=== PATIENT | female | born 1945 | race Caucasian/White ===

== ENCOUNTER 2018-07-06 06:57 | Inpatient (IN) | payer OTHER ==
[~2018-07-06] VITALS: Ht 154.9 cm; Wt 80.8 kg
--- NOTE | 2018-07-06 07:30 | ED GENERAL ADULT ---
History of Present Illness General Chief Complaint: General Adult Stated Complaint: BIBA LOW BLOOD SUGAR Source: patient, family Exam Limitations: clinical condition Vital Signs & Intake/Output Vital Signs & Intake/Output Vital Signs Date Time Temp Pulse Resp B/P B/P Pulse O2 O2 Flow FiO2 Mean Ox Delivery Rate 07/06 1600 97.6 71 19 122/68 97 Room Air 07/06 1600 97 Room Air 07/06 1400 87 110/36 07/06 1400 87 110/56 07/06 1300 97.9 88 20 130/60 99 Room Air 07/06 1109 96.1 96 18 122/58 99 Room Air 07/06 0944 93.9 81 20 106/52 99 Room Air 07/06 0845 92.5 71 18 116/58 100 Room Air 07/06 0806 91.0 69 20 120/58 99 Room Air 07/06 0720 90.2 07/06 0710 96 Room Air 07/06 0710 58 20 164/67 100 Room Air Allergies Coded Allergies: NO KNOWN ALLERGIES (07/11/11) Triage Note: BIBA FROM HOME FOR HYPOGLYCEMIA. PER EMS INITIAL BG = 49 AND PT WAS ALERT BUT CONFUSED. EMS ADMINISTERED 2 TUBES OF ORAL GLUCOSE AND BG = 59 AFTER ORAL GLUCOSE. PT A&OX3 AT THIS TIME. PT C/O BEING WEAK AND COLD. PT DENIES ANY OTHER COMPLAINTS. PT STATES THAT SHE TAKES HER INSULIN PRESCRIBED. Triage Nurses Notes Reviewed? yes HPI: 72-year-old female with insulin dependent diabetes presents with altered mental status, low blood sugar and feeling cold. She woke this morning she was altered and the ambulance was called. In route blood sugar was in the 40s was given 2 amps in route and was given an amp of D50 in the emergency department brought up the sugar to 58. On the emergency department she has a rectal temperature of 90. Past History Travel History Traveled to [place] past 21 day No Medical History Any Pertinent Medical History? see below for history Cardiovascular: hypertension, hyperlipidemia Endocrine: diabetes Surgical History Surgical History: non-contributory Psychosocial History What is your primary language Barbadian Tobacco Use: Never used Family History Hx Contributory? No Review of Systems Review of Systems Constitutional: Reports: no symptoms, see HPI. EENTM: Reports: no symptoms. Respiratory: Reports: no symptoms. Cardiovascular: Reports: no symptoms. GI: Reports: no symptoms. Genitourinary: Reports: no symptoms. Musculoskeletal: Reports: no symptoms. Skin: Reports: no symptoms. Neurological/Psychological: Reports: no symptoms. Hematologic/Endocrine: Reports: no symptoms. Immunologic/Allergic: Reports: no symptoms. All Other Systems: Reviewed and Negative Physical Exam Physical Exam General Appearance: Skin is cold and clammy. Altered mental status. GCS of 12. Comments: Head: Normocephalic, atraumatic. Eyes: Normal inspection bilaterally Ears: Normal inspection bilaterally Nose: Normal inspection Throat/mouth : Moist mucosa Neck: Supple, full range of motion, no goiter Heart: Regular rate and rhythm, no murmurs rubs or gallops Lungs: Clear to auscultation bilaterally with normal air entry Chest: Nontender Back: Normal range of motion Abdomen: Soft, nontender, nondistended, normal bowel sounds Extremities: Normal range of motion grossly, equal radial pulses, no cyanosis clubbing or edema Neurologic: Cranial nerves grossly intact, speech is clear Core Measures ACS in differential dx? No CVA/TIA Diagnosis: No Sepsis Present: No Sepsis Focused Exam Completed? No Progress Differential Diagnoses I considered the following diagnoses in my evaluation of the patient: Unintentional insulin overdose Plan of Care: Orders Procedure Date/time Status ICU LAB BUNDLE 07/07 0500 Active CBC WITHOUT DIFFERENTIAL 07/07 0500 Active Consistent Carbohydrate 1 07/06 L Active Patient Data 07/06 1644 Active Wound Care/Dressing 07/06 1634 Complete Weight 07/06 1634 Active VTE Mechanical Prophylaxis 07/06 1634 Active Vital Signs 07/06 1634 Active Turn and Reposition 07/06 1634 Active Drains/Tubes 07/06 1634 Complete Teach/Educate 07/06 1634 Active Skin Integrity Protocol 07/06 1634 Active Skin/Pressure Ulcer Assess (Sk 07/06 1634 Active Precautions 07/06 1634 Active Pain Treatment and Response 07/06 1634 Active Nutritional Intake, Monitor 07/06 1634 Active Isolation 07/06 1634 Active CIWA 07/06 1634 Complete Patient Care Conference 07/06 1634 Active Activity/Ambulation 07/06 1634 Active VRE ACTIVE SURVIELLANCE 07/06 1213 Active ACTIVE SURVEILLANCE NARES 07/06 1213 Active EKG 07/06 1055 Active Pathway - chart 07/06 1053 Active House Staff 07/06 1053 Active Patient Data 07/06 1053 Active BLOOD CULTURE 07/06 1053 Active Code Status 07/06 1053 Active URINE DRUGS OF ABUSE 07/06 0810 Complete Eason, Insertion/Removal/Asses 07/06 0806 Active CULTURE,URINE 07/06 0806 Active Admit to inpatient 07/06 0752 Active THYROID STIMULATING HORMONE 07/06 0713 Complete TROPONIN LEVEL 07/06 0713 Complete PARTIAL THROMBOPLASTIN TIME 07/06 0713 Complete PROTHROMBIN TIME 07/06 0713 Complete HEPATIC FUNCTION PANEL 07/06 0713 Complete GLYCOSYLATED HGB 07/06 0713 Complete FREE T4 07/06 0713 Complete CORTISOL AM 07/06 0713 Complete URINALYSIS 07/06 0709 Complete CBC WITHOUT DIFFERENTIAL 07/06 0709 Complete BASIC METABOLIC PANEL 07/06 0709 Complete Intake & Output 07/06 0707 Complete FingerStick- Glucose 07/06 0704 Active Lab Add-on Test 07/06 UNK Active VTE Mechanical Prophylaxis 07/06 UNK Active Vital Signs 07/06 UNK Active Nursing Misc 07/06 UNK Active Intake & Output 07/06 UNK Active Activity/Ambulation 07/06 UNK Active Current Medications Sig/Daja Start time Last Medication Dose Stop Time Status Admin Amlodipine Besylate 5 MG DAILY 07/07 09 CAN (Norvasc) Citalopram 20 MG DAILY 07/07 09 AC Hydrobromide (Celexa) Insulin Detemir 22 UNITS DAILY 07/07 09 CAN (Levemir) Losartan Potassium 100 MG DAILY 07/07 09 AC (Cozaar) Metoprolol Succinate 25 MG DAILY 07/07 09 CAN (Toprol XL) Levothyroxine Sodium 0.05 MG DAILY AC 07/07 07 CAN (Synthroid) Omeprazole 20 MG DAILY AC 07/07 0700 AC (Prilosec) Insulin Detemir 15 UNITS AT BEDTIME 07/06 2100 AC (Levemir) Simethicone 80 MG Q6P PRN 07/06 1915 AC 07/06 (Mylicon) 1954 Atorvastatin Calcium 20 MG 1700 07/06 1700 AC 07/06 (Lipitor) 1744 Heparin Sodium 5,000 UNIT Q8 07/06 1400 AC 07/06 (Porcine) 1400 Nitroglycerin 0.4 MG Q 5 MINUTES X 3 DO.. 07/06 1245 CAN (Nitrostat) Metoprolol Tartrate 12.5 MG BID 07/06 1234 AC 07/06 (Lopressor) 1400 Ticagrelor 90 MG BID 07/06 1229 AC 07/06 (Brilinta) 1400 Ranolazine 500 MG BID 07/06 1215 AC 07/06 (Ranexa) 1400 Ticagrelor 90 MG DAILY 07/06 1215 CAN (Brilinta) Insulin Aspart 0 TIDAC/HS 07/06 1200 AC 07/06 (NovoLOG) 1744 Levothyroxine Sodium 0.05 MG DAILY AC 07/06 1112 AC 07/06 (Synthroid) 1744 Acetaminophen 650 MG Q6P PRN 07/06 1100 AC (Tylenol) Dextrose/Water 1,000 ML ONCE ONE 07/06 0730 CAN (D5W 1000) 07/06 1529 Laboratory Tests 07/06/18 0810: Urine Opiates Screen < 100, Methadone Screen 49, Barbiturate Screen < 60, Ur Phencyclidine Scrn < 6.00, Amphetamines Screen < 100, U Benzodiazepines Scrn < 85, Urine Cocaine Screen < 50, Urine Cannabis Screen < 5.00, Urinalysis LIGHT H , Urine Color YEL, Urine Clarity HAZY H, Urine pH 6.0, Ur Specific [place] 1.025, Urine Protein 30 H, Urine Ketones NEG, Urine Nitrite NEG, Urine Bilirubin NEG, Urine Urobilinogen 0.2, Ur Leukocyte Esterase NEG, Ur Microscopic SEDIMENT EXAMINED, Urine RBC RARE, Ur Epithelial Cells FEW, Urine Bacteria FEW H, Hyaline Casts 1-3 H, Urine Mucus FEW, Urine Hemoglobin NEG, Urine Glucose NEG 07/06/18 0713: Anion Gap 8, Estimated GFR 34 L, BUN/Creatinine Ratio 31.3 H, Glucose 56 L, Hemoglobin A1c 7.2 H, Calcium 9.7, Total Bilirubin 0.3, Direct Bilirubin 0.3, AST 21, ALT 33, Alkaline Phosphatase 80, Troponin I < 0.01, Total Protein 8.0, Albumin 4.6, TSH 2.550, Free T4 1.30, Cortisol AM Sample 36.6 H, PT 10.4, INR 0.95, APTT 32, CBC w Diff NO MAN DIFF REQ, RBC 4.39, MCV 90.4, MCH 29.7, MCHC 32.8 L, RDW 13.2, MPV 9.1, Gran % 82.5 H, Lymphocytes % 11.8 L, Monocytes % 5.0, Eosinophils % 0.5, Basophils % 0.2, Absolute Granulocytes 10.8 H, Absolute Lymphocytes 1.5, Absolute Monocytes 0.7 H, Absolute Eosinophils 0.1, Absolute Basophils 0 Microbiology 07/06 1418 BLOOD: Blood Culture - RECD 07/06 1418 BLOOD: Blood Culture - RECD 07/06 1220 UPPER RESP: Surveillance Culture - RECD 07/06 1220 GI: Surveillance Culture - RECD 07/06 0810 URINE ROUT: Urine Culture - RECD Initial ED EKG: normal intervals, normal p-waves, normal QRS complex, normal sinus rhythm, nonspecific ST T wave chg Departure Departure Disposition: STILL A PATIENT Condition: Guarded Clinical Impression Primary Impression: Hypoglycemia Secondary Impressions: Hypothermia Qualifiers: Encounter type: initial encounter Qualified Code: T68.XXXA - Hypothermia, initial encounter Metabolic encephalopathy Referrals: Sonny Persaud DO (PCP/Family) Departure Forms: Customer Survey General Discharge Information Critical Care Note Critical Care Note Critical Care Time: 30-74 min
[2018-07-06 08:17] LABS: ABSOLUTE BASOPHIL COUNT 0 /CUMM (0.0-0.2); ABSOLUTE EOSINOPHIL COUNT 0.1 /CUMM (0.0-0.7); ABSOLUTE GRANULOCYTE CT 10.8 /CUMM (1.4-6.5); ABSOLUTE LYMPH COUNT 1.5 /CUMM (1.2-3.4); ABSOLUTE MONOCYTE COUNT 0.7 /CUMM (0.10-0.60); BASOPHIL % 0.2 % (0.0-2.0); EOSINOPHIL % 0.5 % (0-5); GRANULOCYTE % 82.5 % (42.2-75.2); HEMATOCRIT 39.7 % (37-47); MEAN CORPUSCULAR HGB 29.7 PG (27.0-31.0); MEAN CORPUSCULAR HGB CONC 32.8 G/DL (33.0-37.0); MEAN CORPUSCULAR VOLUME 90.4 FL (81.0-99.0); MEAN PLATELET VOLUME 9.1 FL (7.4-10.4); PLATELET COUNT 218 /CUMM (130-400); RBC DISTRIBUTION WIDTH 13.2 % (11.5-14.5); RED BLOOD CELL CT 4.39 /CUMM (4.20-5.40); WHITE BLOOD CELL COUNT 13.1 /CUMM (4.8-10.8)
--- NOTE | 2018-07-06 08:40 | History & Physical ---
Rivera DUKES,[facility] 07/06/18 0840: General Information and HPI MD Statement: I have seen and personally examined LUDY GUTIERREZ and documented this H&P. The patient is a 72 year old F who presented with a patient stated chief complaint of [fatigue, confusion, low blood sugar]. Source of Information: patient, old records Exam Limitations: no limitations History of Present Illness: Mrs. 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 Patient reported feeling "unwell" yesterday, she ate for dinner slice of cheese and bread and administered the Lantus 22 units, blood sugar was 142. Patient denied any chest pain, abdominal pain, nausea vomiting, diarrhea, urinary symptoms or any upper respiratory tract infection symptoms. Patient went to sleep and woke up at 1 AM feeling dizzy and confused, tried to get her blood sugar however was unable and called her daughter for help. In the ambulance patient received 2 ampules of D 50 and repeated blood sugar was 50. Also patient was found to have temperature of 90.2 rectally, warm blanket and bearhug was applied. At time of encounter patient was alert, oriented 3. He she denied any dizziness, confusion, chest pain, palpitation, shortness of breath, GI or symptoms. Patient is to follow-up with Dr. Hunter, had a recent follow-up with no recent changes in her medication. Allergies/Medications Allergies: Coded Allergies: NO KNOWN ALLERGIES (07/11/11) Past History Travel History Traveled to [place] past 21 day No Medical History Cardiovascular: hypertension, hyperlipidemia Endocrine: diabetes Surgical History Surgical History: non-contributory Review of Systems Review of Systems Constitutional: Reports: see HPI, weakness. Denies: chills, fever. EENTM: Denies: blurred vision, epistaxis. Cardiovascular: Denies: chest pain, orthopena, palpitations. Respiratory: Denies: cough, short of breath. GI: Denies: abdominal pain, diarrhea, nausea, vomiting. Genitourinary: Denies: frequency, hematuria. Musculoskeletal: Denies: joint pain. Skin: Denies: rash. Neurological/Psychological: Denies: confusion, tingling, tremors. Exam & Diagnostic Data Last 24 Hrs of Vital Signs/I&O Vital Signs Date Time Temp Pulse Resp B/P B/P Pulse O2 O2 Flow FiO2 Mean Ox Delivery Rate 07/06 1109 96.1 96 18 122/58 99 Room Air 07/06 0944 93.9 81 20 106/52 99 Room Air 07/06 0845 92.5 71 18 116/58 100 Room Air 07/06 0806 91.0 69 20 120/58 99 Room Air 07/06 0720 90.2 07/06 0710 96 Room Air 07/06 0710 58 20 164/67 100 Room Air Intake & Output 07/06 1600 07/06 0800 07/06 0000 Intake Total 0 Output Total 650 Balance -650 0 Intake, Oral 0 Output, Urine 650 Patient 77.111 kg Weight Weight Reported by Patient Measurement Method Physical Exam General Appearance Alert, Oriented X3, Cooperative, No Acute Distress Skin No Rashes, No Breakdown, No Significant Lesion Skin Temp/Moisture Exam: Warm/Dry HEENT Atraumatic, PERRLA, EOMI, Mucous Membr. moist/pink Neck Supple Cardiovascular Regular Rate, Normal S1, Normal S2, No Murmurs Lungs Clear to Auscultation, Normal Air Movement Abdomen Normal Bowel Sounds, Soft, No Tenderness Neurological Normal Speech, Strength at 5/5 X4 Ext, Normal Tone, Sensation Intact, Cranial Nerves 3-12 NL Extremities No Clubbing, No Cyanosis, No Edema, Normal Pulses Assessment/Plan Assessment: Problem list #Hypoglycemia mostly due to medication side effect #Hypothermia metabolic versus infectious #EDIN on CKD #Hypothyroidism on Synthroid #Hypertension, hyperlipidemia #Coronary artery disease status post stent placement on Brilinta and aspirin #Chronic angina on Ranexa and nitroglycerin #CKD Plan Admit to ICU for close monitoring Vitals Q1h Strict ins and outs Accu-Chek every hour Endocrine consultation Recent blood sugar is 300, will DC D10 Start diet consistent carbohydrate 1 Discontinue home insulin Lantus 22 pending endocrine recommendation Obtain TSH level, cortisol level Obtain drug toxicology Obtain liver function test Confirm medication and restart Brilinta and aspirin Repeat ICU bundle and CBC in a.m. Looking for source of infection--will obtain CT without contrast chest, abdomen and pelvis and horta culture CODE STATUS full DVT prophylaxis Alps and heparin subcutaneum As Ranked By This Provider Problem List: 1. Hypoglycemia Core Measures/Misc (06/30) Acute Coronary Syndrome ACS Diagnosis: No Congestive Heart Failure Congestive Heart Failure Diagnosis No Cerebrovascular Accident CVA/TIA Diagnosis: No VTE (View Protocol) VTE Risk Factors Age>40 No Mechanical VTE Prophylaxis d/t N/A MechProphylax Ordered No VTE Pharm Prophylaxis d/t NA PharmProphylax ordered Sepsis (View protocol) Sepsis Present: No If YES complete Sepsis Event Note If YES complete Sepsis Event Note Eduar Gaona MD Olivia 07/06/18 1305: Core Measures/Misc (06/30) Sepsis (View protocol) If YES complete Sepsis Event Note If YES complete Sepsis Event Note Attending MD Review Statement Attending Statement Attending MD Statement: examined this patient, discuss w/resident/PA/TRANSPORTATION AIDE, agreed w/resident/PA/TRANSPORTATION AIDE, discussed with nursing, reviewed images, amended to note Attending Assessment/Plan: I have personally seen and examined the patient and agree with the resident's assessment and plan as detailed above. Briefly, the patient is a 72-year-old female with a past medical history significant for type 2 diabetes, hypothyroidism, CAD status post stent placement in November 2017 on Brilinta and aspirin, CKD secondary to diabetes, hypertension, hyperlipidemia, chronic angina on Ranexa and nitroglycerin, and depression. The patient was admitted earlier today with complaints of dizziness confusion and profound hypoglycemia. The patient reported feeling unwell the day prior to admission. She took her usual dose of Lantus of 22 units last evening. In the ED, the patient required multiple amps of D50 and eventually was placed on a D10 drip for a short period of time. The patient is now feeling improved since admission. She is currently awake and alert. Her blood sugars have normalized and she is off D10. She is being monitored in the critical care unit for persistent hypoglycemia, likely due to medication effect. She was also hypothermic which is metabolic versus infectious. Impression: 1. Hypoglycemia, likely secondary to medication effect. 2. Hypothermia with a temperature of 90, metabolic versus infectious. 3. Hypothyroidism on Synthroid. 4. Hypertension. 5. Hyperlipidemia. 6. CAD status post stent placement, on Brilinta and aspirin. 7. Chronic angina on Ranexa and nitroglycerin. 8. CKD, renal function stable. Plan: * Monitor vital signs every hour. * Monitor blood sugars every hour. * Will adjust therapy based upon the patient's response to IV fluids. * Endocrinology has been consulted. We will follow-up recommendations. * Start diabetic diet. * Obtain TSH level and cortisol level. * Obtain LFTs. * Drugs screen sent. * Monitor for source of infection. Suggest horta scan. * DVT prophylaxis at all times. * Continue all supportive care.
--- NOTE | 2018-07-06 11:13 | Cons- Endocrinology ---
General Information and HPI Consulting Request Date of Consult: 07/06/18 Requested By: ICU Reason for Consult: hypoglycemia Source of Information: patient, family, old records Exam Limitations: no limitations History of Present Illness: 72 y/o female with hx of diabetes type 2, hypothyroidism and CAD, was brought to ER for hypoglycemia with glucose level in the 40s. She was found to be hypothermic wih temperature of 90.2. After she was treated with glucose and warming blanket, she became alert and awake. Her glucose level was in the 300s and IV glucose was discontinued. At home, she was on Lantus 22 units daily at bedtime, Apidra before meals according to the scale. Her glucose level was in the 140s before dinner yesterday and she took ? 8 units of Apidra and she had a sandwich. But she didn' t check her glucose level at bedtime. Allergies/Medications Allergies: Coded Allergies: NO KNOWN ALLERGIES (07/11/11) Review of Systems Review of Systems Constitutional: Reports: see HPI. Cardiovascular: Denies: chest pain. Respiratory: Denies: short of breath. GI: Denies: abdominal pain. Genitourinary: Denies: dysuria. Musculoskeletal: Reports: joint pain. Denies: back pain. Hematologic/Endocrine: Denies: polyuria, polydipsia. Past History Travel History Traveled to [place] past 21 day No Medical History Cardiovascular: hypertension, hyperlipidemia Endocrine: diabetes, hypothyroidism Surgical History Surgical History: non-contributory Exam & Diagnostic Data Last 24 Hrs of Vital Signs/I&O Vital Signs Date Time Temp Pulse Resp B/P B/P Pulse O2 O2 Flow FiO2 Mean Ox Delivery Rate 07/06 1400 87 110/36 07/06 1400 87 110/56 07/06 1109 96.1 96 18 122/58 99 Room Air 07/06 0944 93.9 81 20 106/52 99 Room Air 07/06 0845 92.5 71 18 116/58 100 Room Air 07/06 0806 91.0 69 20 120/58 99 Room Air 07/06 0720 90.2 07/06 0710 96 Room Air 07/06 0710 58 20 164/67 100 Room Air Intake & Output 07/06 1600 07/06 0800 07/06 0000 Intake Total 0 Output Total 650 Balance -650 0 Intake, Oral 0 Output, Urine 650 Patient 170 lb Weight Weight Reported by Patient Measurement Method Physical Exam General Appearance: no apparent distress Respiratory: lungs clear Cardiovascular: regular rate/rhythm Gastrointestinal: normal bowel sounds, soft, non-tender Extremities: no edema Labs/Prakash Results: Laboratory Tests 07/06 07/06 0810 0713 Chemistry Sodium (137 - 145 mmol/L) 143 Potassium (3.5 - 5.1 mmol/L) 3.8 Chloride (98 - 107 mmol/L) 108 H Carbon Dioxide (22 - 30 mmol/L) 26 Anion Gap (5 - 16) 8 BUN (7 - 17 mg/dL) 47 H Creatinine (0.5 - 1.0 mg/dL) 1.5 H Estimated GFR (>60 ml/min) 34 L BUN/Creatinine Ratio (7 - 25 %) 31.3 H Glucose (65 - 99 mg/dL) 56 L Hemoglobin A1c (4.2 - 5.8 %) 7.2 H Calcium (8.4 - 10.2 mg/dL) 9.7 Total Bilirubin (0.2 - 1.3 mg/dL) 0.3 Direct Bilirubin (< 0.4 mg/dL) 0.3 AST (14 - 36 U/L) 21 ALT (9 - 52 U/L) 33 Alkaline Phosphatase (<127 U/L) 80 Troponin I (< 0.11 ng/ml) < 0.01 Total Protein (6.3 - 8.2 g/dL) 8.0 Albumin (3.5 - 5.0 g/dL) 4.6 TSH (0.270 - 4.200 uIU/mL) 2.550 Free T4 (0.78 - 2.44 ng/dL) 1.30 Cortisol AM Sample (4.46 - 22.7 ug/dL) 36.6 H Coagulation PT (9.4 - 12.5 SEC) 10.4 INR (0.90 - 1.19) 0.95 APTT (25 - 37 SEC) 32 Hematology CBC w Diff NO MAN DIFF REQ WBC (4.8 - 10.8 /CUMM) 13.1 H RBC (4.20 - 5.40 /CUMM) 4.39 Hgb (12.0 - 16.0 G/DL) 13.0 Hct (37 - 47 %) 39.7 MCV (81.0 - 99.0 FL) 90.4 MCH (27.0 - 31.0 PG) 29.7 MCHC (33.0 - 37.0 G/DL) 32.8 L RDW (11.5 - 14.5 %) 13.2 Plt Count (130 - 400 /CUMM) 218 MPV (7.4 - 10.4 FL) 9.1 Gran % (42.2 - 75.2 %) 82.5 H Lymphocytes % (20.5 - 51.1 %) 11.8 L Monocytes % (1.7 - 9.3 %) 5.0 Eosinophils % (0 - 5 %) 0.5 Basophils % (0.0 - 2.0 %) 0.2 Absolute Granulocytes (1.4 - 6.5 /CUMM) 10.8 H Absolute Lymphocytes (1.2 - 3.4 /CUMM) 1.5 Absolute Monocytes (0.10 - 0.60 /CUMM) 0.7 H Absolute Eosinophils (0.0 - 0.7 /CUMM) 0.1 Absolute Basophils (0.0 - 0.2 /CUMM) 0 Toxicology Urine Opiates Screen (>2000 NG/ML) < 100 Methadone Screen (>300 NG/ML) 49 Barbiturate Screen (>200 NG/ML) < 60 Ur Phencyclidine Scrn (>25 NG/ML) < 6.00 Amphetamines Screen (>1000 NG/ML) < 100 U Benzodiazepines Scrn (>200 NG/ML) < 85 Urine Cocaine Screen (>300 NG/ML) < 50 Urine Cannabis Screen (>50 NG/ML) < 5.00 Urines Urinalysis LIGHT H Urine Color (YEL,AMB,STR) YEL Urine Clarity (CLEAR) HAZY H Urine pH (5.0 - 8.0) 6.0 Ur Specific [place] (1.001 - 1.035) 1.025 Urine Protein (NEG,<30 MG/DL) 30 H Urine Ketones (NEG) NEG Urine Nitrite (NEG) NEG Urine Bilirubin (NEG) NEG Urine Urobilinogen (0.1 - 1.0 EU/dl) 0.2 Ur Leukocyte Esterase (NEG) NEG Ur Microscopic SEDIMENT EXAMINED Urine RBC (0 - 5 /HPF) RARE Ur Epithelial Cells (NONE,FEW) FEW Urine Bacteria (NEG/NONE) FEW H Hyaline Casts (0/LPF) 1-3 H Urine Mucus (FEW,NONE) FEW Urine Hemoglobin (NEG) NEG Urine Glucose (N MG/DL) NEG Assessment/Plan Assessment/Plan 72 y/o female with hx of diabetes type 2, hypothyroidism and CAD, was brought to ER for hypoglycemia with glucose level in the 40s. She was found to be hypothermic wih temperature of 90.2. After she was treated with glucose and warming blanket, she became alert and awake. Her glucose level was in the 300s and IV glucose was discontinued. plan: 1. consistent carbohydrates 1 diet; 2. start Levemir 15 units daily; 3. start Novolog coverage before meals and Novolog coverage at bedtime; detail see the inpatient DM orders; 4. monitor FSGs; snack at bedtime if FSG is less than 140 at bedtime; 5. recommmend applying for DEXCOM or TintriStyle Ian for closely monitoring her glucose level after discharge. 6. continue Levothyroxine 50 mcg daily; monitor TFT, am cortisol and HbA1c. Plan has been discussed with patient and family. will follow. Inpatient Diabetes Orders Before Each Meal: Bolus Insulin: Novolog < 80 mg/dl: no coverage 80-100 mg/dl: 4 units 101-120 mg/dl: 4 units 121-150 mg/dl: 4 units 151-200 mg/dl: 5 units 201-250 mg/dl: 6 units 251-300 mg/dl: 7 units 301-350 mg/dl: 8 units 351-400 mg/dl: 9 units > 400 mg/dl: 10 units Bedtime: Bolus Insulin: Novolog < 80 mg/dl: no coverage 80-100 mg/dl: no coverage 101-120 mg/dl: no coverage 121-150 mg/dl: no coverage 151-200 mg/dl: no coverage 201-250 mg/dl: no coverage 251-300 mg/dl: 2 units 301-350 mg/dl: 3 units 351-400 mg/dl: 4 units > 400 mg/dl: 5 units Consult Acknowledgment - Thank you for your consult request.
[2018-07-06 11:53] LABS: PT 10.4 SEC (9.4-12.5); PTT 32 SEC (25-37)
[2018-07-06 13:00] VITALS: BP 130/60
--- NOTE | 2018-07-06 13:05 | Admission Certification ---
Admission Certification Certification Statement - As attending physician, I certify that at the time of - admission, based on clinical presentation, severity of - symptoms, need for further diagnostic testing and - therapeutic interventions, and risk of adverse outcomes - without in-hospital treatment, in my clinical assessment, - this patient requires an acute hospital stay for a minimum - of two nights or longer. I have also considered psychsocial - factors such as support system, advanced age, financial - issues, cognitive issues, and failed out-patient treatments, - past re-admission history, safety of patient, and lack of - compliance as applicable. Specific rationale supporting this admission is: The patient is being admitted to the critical care unit for monitoring and treatment of profound hypoglycemia in the setting of type 1 diabetes. The patient also has hypothermia suggestive of possible sepsis. She will require every hour blood sugars, endocrine consult and evaluation for sepsis.
[2018-07-06 16:00] VITALS: BP 122/68
--- NOTE | 2018-07-06 17:12 | CT SCAN REPORT ---
EXAMINATION: CT CHEST, ABDOMEN AND PELVIS NONCONTRAST STUDY CLINICAL INFORMATION: Hypoglycemia. Symptoms of fatigue. Intra abdominal pathology. Hypothermia. COMPARISON: No prior studies available. TECHNIQUE: Multidetector volumetric CT imaging of the chest was obtained Axial MIP volume rendering provided. Sagittal and coronal reformatted images were obtained. CONTRAST: Noncontrasted study. Reformatted coronal and sagittal imaging was performed. DLP: 601 mGy-cm. FINDINGS: FINANCIAL ANALYST INTERN, LINES TUBES: Maintenance Worker Municipal reviewed, no lines. LUNGS: Interstitial: No CT evidence of pulmonary infiltrates. No significant interstitial lung disease. Lung nodules: There is a 3 mm density right lower lobe image 160 series 4. There is 4 mm nodule right upper lobe image 202. There is 4 mm nodule middle lobe image 215 series 4. There is 8 x 7 mm nodule left lower lobe image 198 series 4. There is 4 mm density right lower lobe. No suspicious lung mass. Other smaller densities present. AIRWAYS: Trachea and bronchi are normal. PLEURA: No pleural effusion or pneumothorax. MEDIASTINUM AND KALIN: Thyroid is enlarged extending into the anterior upper mediastinum. This was characterize best with prior ultrasound. 2016. No mediastinal, hilar or axillary lymphadenopathy. There is no mediastinal mass. THORACIC AORTA: Thoracic aorta is normal in size. CHEST WALL, LOWER NECK, SURROUNDING SOFT TISSUES: Normal. HEART AND PERICARDIUM: Heart is normal in size. There is no pericardial effusion. There are coronary calcifications. HEPATOBILIARY: No focal hepatic lesions. No biliary ductal dilatation. GALLBLADDER: Gallbladder unremarkable. SPLEEN: Spleen normal in size, there is heavy calcifications of the splenic artery. PANCREAS: No focal mass or ductal dilatation. GI TRACT: No distention or wall thickening. No CT evidence of appendicitis. ADRENALS: No adrenal nodules. KIDNEYS/URETERS: There is mild left renal hydronephrosis and hydroureter. No stone can be identified along the course of the left ureter. Urinary bladder is collapsed Eason catheter in place. Right kidney is normal in size, perinephric fat are clear. PELVIC ORGANS/BLADDER: Eason catheter in place, urinary bladder is collapsed. PERITONEUM: No free air or fluid. LYMPH NODES: no retroperitoneal or mesenteric lymphadenopathy. VASCULAR: There are aortic calcifications. No aneurysm. BONES, ABDOMINAL WALL AND SOFT TISSUES: Age-appropriate changes of the spine and skeletal system, no destructive osteolytic or osteosclerotic bone lesion found. IMPRESSION: 1. No CT evidence of acute intra-abdominal process to explain patient's symptoms. 2. Mild left renal hydronephrosis and proximal hydroureter, no obstructing stone found along the course of the left ureter. If there is a clinical suspicion for possible kidney stones, May consider follow-up standard CT urogram. 3. There are lung nodules the largest is 7 x 8 mm nodule found in the left lower lobe. According to the UPDATED 2017 Fleischner Society recommendations, the advised follow-up imaging for a single 6-8 mm solid nodule is: LOW RISK PATIENT: CT at 6-12 months, then consider CT at 18-24 months. HIGH RISK PATIENT: CT at 6-12 months, then at 18-24 months. 4. Enlarged thyroid protruding into the upper anterior mediastinum, this can be assessed best with ultrasound.
[2018-07-07] VITALS: BP 110/70
[2018-07-07 07:01] LABS: ABSOLUTE BASOPHIL COUNT 0 /CUMM (0.0-0.2); ABSOLUTE EOSINOPHIL COUNT 0.1 /CUMM (0.0-0.7); ABSOLUTE GRANULOCYTE CT 3.4 /CUMM (1.4-6.5); ABSOLUTE MONOCYTE COUNT 0.4 /CUMM (0.10-0.60); BASOPHIL % 0.3 % (0.0-2.0); EOSINOPHIL % 1.6 % (0-5); MEAN CORPUSCULAR HGB 29.8 PG (27.0-31.0); MEAN CORPUSCULAR HGB CONC 33.2 G/DL (33.0-37.0); MEAN CORPUSCULAR VOLUME 89.7 FL (81.0-99.0); MEAN PLATELET VOLUME 9.5 FL (7.4-10.4); PLATELET COUNT 180 /CUMM (130-400); RBC DISTRIBUTION WIDTH 13.3 % (11.5-14.5); RED BLOOD CELL CT 3.53 /CUMM (4.20-5.40)
[2018-07-07 07:04] LABS: ABSOLUTE LYMPH COUNT 1.6 /CUMM (1.2-3.4); GRANULOCYTE % 61.3 % (42.2-75.2); HEMATOCRIT 31.7 % (37-47); WHITE BLOOD CELL COUNT 5.6 /CUMM (4.8-10.8)
--- NOTE | 2018-07-07 07:46 | PN- Resident CRCU ---
Subjective HPI/CRCU Issues: Hypoglycemia - resolved Hypothermia - resolved 24 Hour Events: Patient seen and examined at bedside. Pt denies complaints. Denies fevers/chills /night sweats/chest pain/abdominal pain/urinary symptoms/lower extremity edema Objective Vital Signs & I&O Last 8 Hrs of Vitals and I&O: Vital Signs Date Time Temp Pulse Resp B/P B/P Pulse O2 O2 Flow FiO2 Mean Ox Delivery Rate 07/07 0800 Room Air 07/07 0800 98.1 74 18 134/70 97 Room Air 07/07 0400 96 Room Air 07/07 0000 98 Room Air 07/07 0000 97.6 66 22 110/70 98 Room Air 07/06 2156 72 124/71 07/06 2155 73 124/71 07/06 2000 Room Air 07/06 1600 97.6 71 19 122/68 97 Room Air 07/06 1600 97 Room Air 07/06 1400 87 110/36 07/06 1400 87 110/56 07/06 1300 97.9 88 20 130/60 99 Room Air Intake & Output 07/07 1600 07/07 0800 07/07 0000 Intake Total 200 590 Output Total 450 800 920 Balance -450 -600 -330 Intake, IV 10 Intake, Oral 200 580 Output, Urine 450 800 920 Intake & Output 07/07 1600 Intake Total Output Total 450 Balance -450 Output, Urine 450 Exam General Appearance: no apparent distress, alert, awake, comfortable Head: atraumatic Neck: normal inspection Respiratory: normal breath sounds, lungs clear Cardiovascular: regular rate/rhythm, normal peripheral pulses Gastrointestinal: soft, non-tender, obese Extremities: normal inspection, no edema Cranial Nerves: normal speech Skin: intact Skin Temp/Moisture Exam: Warm/Dry Current Medications: Current Medications Sig/Daja Start time Last Medication Dose Route Stop Time Status Admin Acetaminophen 650 MG Q6P PRN 07/06 1100 AC PO Amlodipine Besylate 5 MG DAILY 07/07 0900 CAN PO Atorvastatin Calcium 20 MG 1700 07/06 1700 AC 07/06 PO 1744 Bisacodyl 10 MG Q12P PRN 07/07 1115 AC ID Citalopram 20 MG DAILY 07/07 0900 AC 07/07 Hydrobromide PO 0942 Docusate Sodium 100 MG DAILY NEEDED PRN 07/07 1115 AC PO Heparin Sodium 5,000 UNIT Q8 07/06 1400 AC 07/07 (Porcine) SC 0709 Insulin Aspart 0 TIDAC/HS 07/06 1200 AC 07/07 SC 1148 Insulin Detemir 18 UNITS AT BEDTIME 07/07 2100 AC SC Insulin Detemir 22 UNITS DAILY 07/07 900 CAN SC Insulin Detemir 15 UNITS AT BEDTIME 07/06 2100 DC 07/06 SC 2156 Levothyroxine Sodium 0.05 MG DAILY AC 07/07 0700 CAN PO Levothyroxine Sodium 0.05 MG DAILY AC 07/06 1112 AC 07/07 PO 0710 Losartan Potassium 100 MG DAILY 07/07 0900 AC 07/07 PO 0943 Metoprolol Succinate 25 MG DAILY 07/07 09 CAN PO Metoprolol Tartrate 12.5 MG BID 07/06 1234 AC 07/07 PO 0943 Nitroglycerin 0.4 MG Q 5 MINUTES X 3 DO.. 07/06 1245 CAN SL Omeprazole 20 MG DAILY AC 07/07 0700 AC 07/07 PO 0944 Ranolazine 500 MG BID 07/06 1215 AC 07/07 PO 0943 Senna/Docusate Sodium 1 TAB BID PRN 07/07 1115 AC PO Simethicone 80 MG Q6P PRN 07/06 1915 AC 07/06 PO 1954 Ticagrelor 90 MG BID 07/06 1229 AC 07/07 PO 0942 Ticagrelor 90 MG DAILY 07/06 1215 CAN PO Impression/Plan Impression/Problem List Impression: Mrs. 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 She is now a general medicine hold. Respiratory: Stable on room air, 96% Infectious Disease: WBC 5.6, afebrile, cultures ngtd Cardiovascular/Circulation: Sinus rhythym 62-88 on monitor Maintaining blood pressures Hematological: H/H 10.5/31.7, normocytic anemia vs dilutional anemia Metabolic: A1C 7.2 Levemir at 18, sliding scale increased Appreciate endocrine recommendations Fingersticks in upper 150s postprandially Will order thyroid US to r/o mass given CT findings Alimentary: CC1 diet Bowel regimen PRN Neurologic: Intact Nephro: Eason discontinued BUN/Cr ratio >20, likely prerenally source of EDIN , baseline creatinine 1.1 BUN/Cr 43/1.[address] scan unsure of chronicity, pending urology input which is appreciated DVT PPX IV access Full Code Problem List: 1. Hypothermia 2. Hypoglycemia 3. Metabolic encephalopathy Pain Ratin Tomorrow's Labs & Rationales: bep, cbc - anemia + hypoglycemia on admission, edin Plan DVT/Prophylaxis: mechanical, pharmacological
[2018-07-07 08:00] VITALS: BP 134/70
--- NOTE | 2018-07-07 08:22 | PN- CRCU ---
Subjective HPI/Critical Care Issues: The patient is awake and alert. She reports feeling significantly improved. Her blood sugars have been elevated in the 2-300s. Her respiratory status is stable noting she remains on room air. She is afebrile. There were no overnight events reported. Objective Current Medications: Current Medications Sig/Daja Start time Last Medication Dose Route Stop Time Status Admin Acetaminophen 650 MG Q6P PRN 07/06 1100 AC PO Amlodipine Besylate 5 MG DAILY 07/07 0900 CAN PO Atorvastatin Calcium 20 MG 1700 07/06 1700 AC 07/06 PO 1744 Citalopram 20 MG DAILY 07/07 0900 AC Hydrobromide PO Dextrose/Water 1,000 ML Q24H 07/06 0800 DC 07/06 IV 0840 Heparin Sodium 5,000 UNIT Q8 07/06 1400 AC 07/07 (Porcine) SC 0709 Insulin Aspart 0 TIDAC/HS 07/06 1200 AC 07/06 SC 2156 Insulin Detemir 22 UNITS DAILY 07/07 0900 CAN SC Insulin Detemir 15 UNITS AT BEDTIME 07/06 2100 AC 07/06 SC 2156 Levothyroxine Sodium 0.05 MG DAILY AC 07/07 0700 CAN PO Levothyroxine Sodium 0.05 MG DAILY AC 07/06 1112 AC 07/07 PO 0710 Losartan Potassium 100 MG DAILY 07/07 0900 AC PO Metoprolol Succinate 25 MG DAILY 07/07 0900 CAN PO Metoprolol Tartrate 12.5 MG BID 07/06 1234 AC 07/06 PO 2155 Nitroglycerin 0.4 MG Q 5 MINUTES X 3 DO.. 07/06 1245 CAN SL Omeprazole 20 MG DAILY AC 07/07 0700 AC PO Ranolazine 500 MG BID 07/06 1215 AC 07/06 PO 2156 Simethicone 80 MG Q6P PRN 07/06 1915 AC 07/06 PO 1954 Ticagrelor 90 MG BID 07/06 1229 AC 07/06 PO 2155 Ticagrelor 90 MG DAILY 07/06 1215 CAN PO Vital Signs & I&O Last 24 Hrs of Vitals and I&O: Vital Signs Date Time Temp Pulse Resp B/P B/P Pulse O2 O2 Flow FiO2 Mean Ox Delivery Rate 07/07 0400 96 Room Air 07/07 0000 98 Room Air 07/07 0000 97.6 66 22 110/70 98 Room Air 07/06 2156 72 124/71 07/06 2155 73 124/71 07/06 2000 Room Air 07/06 1600 97.6 71 19 122/68 97 Room Air 07/06 1600 97 Room Air 07/06 1400 87 110/36 07/06 1400 87 110/56 07/06 1300 97.9 88 20 130/60 99 Room Air 07/06 1109 96.1 96 18 122/58 99 Room Air 07/06 0944 93.9 81 20 106/52 99 Room Air 07/06 0845 92.5 71 18 116/58 100 Room Air 07/06 0806 91.0 69 20 120/58 99 Room Air Intake & Output 07/07 0800 07/07 0000 07/06 1600 Intake Total 200 590 480 Output Total 800 920 950 Balance -600 -330 -470 Intake, IV 10 0 Intake, Oral 200 580 480 Number 0 Bowel Movements Output, Urine 800 920 950 Patient 178 lb Weight Weight Bed scale Measurement Method Exam General Appearance: no apparent distress, alert, awake, comfortable Head: atraumatic Neck: supple Respiratory: normal breath sounds, lungs clear Cardiovascular: regular rate/rhythm Abdomen: normal bowel sounds, soft, non-tender Extremities: no edema Skin: intact, normal color, warm/dry Results Last 24 Hrs of Lab Results: Laboratory Tests 07/07/18 0545: Anion Gap 7, Estimated GFR 40 L, Glucose 175 H, Calcium 8.9, Phosphorus 3.5, Magnesium 1.9, Total Bilirubin 0.4, AST 15, ALT 31, Albumin 3.2 L, CBC w Diff NO MAN DIFF REQ, RBC 3.53 L, MCV 89.7, MCH 29.8, MCHC 33.2, RDW 13.3, MPV 9.5, Gran % 61.3, Lymphocytes % 29.4, Monocytes % 7.4, Eosinophils % 1.6, Basophils % 0.3, Absolute Granulocytes 3.4, Absolute Lymphocytes 1.6, Absolute Monocytes 0.4 , Absolute Eosinophils 0.1, Absolute Basophils 0 Impression/Plan Impression/Plan Impression/Plan: 1. Hypoglycemia, likely secondary to medication effect, resolved. Insulin dependent DM. 2. Hypothermia with a temperature of 90, metabolic versus infectious, resolved. 3. Hypothyroidism on Synthroid. 4. Hypertension. 5. Hyperlipidemia. 6. CAD status post stent placement, on Brilinta and aspirin. 7. Chronic angina on Ranexa and nitroglycerin. 8. CKD, renal function stable. 9. Mild hydronephrosis on CT scan, chronic? 10. Multiple, incidental lung nodules which will require follow-up. 11. Enlarged thyroid protruding into the anterior mediastinum, rule out etiology. Recommendations: * Continue insulin regimen as per endocrine, appreciate input. * Check a thyroid ultrasound, rule out mass. * Diet advanced and IV fluids stopped. * Urology consulted for mild hydronephrosis. * Continue cardiac medications. * Bowel regimen as needed. * Monitor off antibiotics. * Increase activity, out of bed to chair. * The patient will require a follow-up CT scan of the chest in 6 months time to ensure stability of the nodules. * DVT prophylaxis at all times. * Downgrade out of ICU after review of telemetry monitoring.
--- NOTE | 2018-07-07 12:56 | PN- Diabetes ---
Assessment/Plan Diabetes Assessment: 72 y/o female with hx of diabetes type 2, hypothyroidism and CAD, was brought to ER for hypoglycemia with glucose level in the 40s. She was found to be hypothermic wih temperature of 90.2. After she was treated with glucose and warming blanket, she became alert and awake. Her glucose level was in the 300s and IV glucose was discontinued. She was put on consistent carbohydrates 1 diet, Levemir 15 units daily at bedtime, Novolog coverage before meals and Novolog coverage at bedtime. Before Each Meal: Bolus Insulin: Novolog < 80 mg/dl: no coverage 80-100 mg/dl: 4 units 101-120 mg/dl: 4 units 121-150 mg/dl: 4 units 151-200 mg/dl: 5 units 201-250 mg/dl: 6 units 251-300 mg/dl: 7 units 301-350 mg/dl: 8 units 351-400 mg/dl: 9 units > 400 mg/dl: 10 units Bedtime: Bolus Insulin: Novolog < 80 mg/dl: no coverage 80-100 mg/dl: no coverage 101-120 mg/dl: no coverage 121-150 mg/dl: no coverage 151-200 mg/dl: no coverage 201-250 mg/dl: no coverage 251-300 mg/dl: 2 units 301-350 mg/dl: 3 units 351-400 mg/dl: 4 units > 400 mg/dl: 5 units His FSGs were 219, 279 and 175. Plan: 1. increase Levemir to 18 units daily; 2. increase Novolog coverage before meals; Bolus Insulin: Novolog < 80 mg/dl: no coverage 80-100 mg/dl: 6 units 101-120 mg/dl: 6 units 121-150 mg/dl: 6 units 151-200 mg/dl: 7 units 201-250 mg/dl: 8 units 251-300 mg/dl: 9 units 301-350 mg/dl: 10 units 351-400 mg/dl: 11 units > 400 mg/dl: 12 units 3. continue the current Novolog coverage at bedtime; 4. monitor FSGs. 5. will apply for sensor after discharge. will follow. Subjective Subjective: She feels well this morning. Objective Last 24 Hrs of Vital Signs/I&O Vital Signs Date Time Temp Pulse Resp B/P B/P Pulse O2 O2 Flow FiO2 Mean Ox Delivery Rate 07/07 0800 Room Air 07/07 0800 98.1 74 18 134/70 97 Room Air 07/07 0400 96 Room Air 07/07 0000 98 Room Air 07/07 0000 97.6 66 22 110/70 98 Room Air 07/06 2156 72 124/71 07/06 2155 73 124/71 07/06 2000 Room Air 07/06 1600 97.6 71 19 122/68 97 Room Air 07/06 1600 97 Room Air 07/06 1400 87 110/36 07/06 1400 87 110/56 Intake & Output 07/07 1600 07/07 0800 07/07 0000 Intake Total 200 590 Output Total 450 800 920 Balance -450 -600 -330 Intake, IV 10 Intake, Oral 200 580 Output, Urine 450 800 920 Findings Pertinent Lab/Prakash Results: Laboratory Tests 07/07 0545 Chemistry Sodium (137 - 145 mmol/L) 136 L Potassium (3.5 - 5.1 mmol/L) 4.9 Chloride (98 - 107 mmol/L) 106 Carbon Dioxide (22 - 30 mmol/L) 22 Anion Gap (5 - 16) 7 BUN (7 - 17 mg/dL) 43 H Creatinine (0.5 - 1.0 mg/dL) 1.3 H Estimated GFR (>60 ml/min) 40 L Glucose (65 - 99 mg/dL) 175 H Calcium (8.4 - 10.2 mg/dL) 8.9 Phosphorus (2.5 - 4.5 mg/dL) 3.5 Magnesium (1.6 - 2.3 mg/dL) 1.9 Total Bilirubin (0.2 - 1.3 mg/dL) 0.4 AST (14 - 36 U/L) 15 ALT (9 - 52 U/L) 31 Albumin (3.5 - 5.0 g/dL) 3.2 L Hematology CBC w Diff NO MAN DIFF REQ WBC (4.8 - 10.8 /CUMM) 5.6 RBC (4.20 - 5.40 /CUMM) 3.53 L Hgb (12.0 - 16.0 G/DL) 10.5 L Hct (37 - 47 %) 31.7 L MCV (81.0 - 99.0 FL) 89.7 MCH (27.0 - 31.0 PG) 29.8 MCHC (33.0 - 37.0 G/DL) 33.2 RDW (11.5 - 14.5 %) 13.3 Plt Count (130 - 400 /CUMM) 180 MPV (7.4 - 10.4 FL) 9.5 Gran % (42.2 - 75.2 %) 61.3 Lymphocytes % (20.5 - 51.1 %) 29.4 Monocytes % (1.7 - 9.3 %) 7.4 Eosinophils % (0 - 5 %) 1.6 Basophils % (0.0 - 2.0 %) 0.3 Absolute Granulocytes (1.4 - 6.5 /CUMM) 3.4 Absolute Lymphocytes (1.2 - 3.4 /CUMM) 1.6 Absolute Monocytes (0.10 - 0.60 /CUMM) 0.4 Absolute Eosinophils (0.0 - 0.7 /CUMM) 0.1 Absolute Basophils (0.0 - 0.2 /CUMM) 0
[2018-07-07 16:00] VITALS: BP 106/60
[2018-07-07 17:55] VITALS: BP 132/70
[2018-07-07 21:33] VITALS: BP 134/60
[2018-07-08 05:34] VITALS: BP 120/70
--- NOTE | 2018-07-08 06:55 | PN- Housestaff ---
Christa Peoples 07/08/18 0655: Subjective Follow-up For: Hypoglycemia, hypothermia Complaints: no complaints Subjective: Patient seen this morning having breakfast. She reports reports feeling well, no complaints or acute events overnight. She states that she wants to go home today Review of Systems Constitutional: Reports: see HPI. Objective Last 24 Hrs of Vital Signs/I&O Vital Signs Date Time Temp Pulse Resp B/P B/P Pulse O2 O2 Flow FiO2 Mean Ox Delivery Rate 07/08 0916 74 122/68 07/08 0915 74 122/68 07/08 0915 74 122/68 07/08 0534 98.1 66 18 120/70 97 Room Air 07/07 2200 79 134/60 07/07 2159 79 134/60 07/07 2133 98.2 79 20 134/60 99 Room Air 07/07 1755 97.9 80 20 132/70 97 Room Air 07/07 1600 97.9 92 18 106/60 96 Room Air Intake & Output 07/08 1600 07/08 0800 07/08 0000 Intake Total 240 Output Total Balance 240 Intake, Oral 240 Physical Exam General Appearance: Alert, Oriented X3, Cooperative, No Acute Distress Skin: No Rashes, No Breakdown, No Significant Lesion Skin Temp/Moisture Exam: Cool/Dry Sepsis Skin Exam (color): Normal for Ethnicity HEENT: Atraumatic, PERRLA, EOMI, Mucous Membr. moist/pink Neck: Supple, No JVD, No thryomegaly, +2 Carotid Pulse wo Bruit Cardiovascular: Regular Rate, Normal S1, Normal S2, No Murmurs Lungs: Clear to Auscultation, Normal Air Movement Abdomen: Normal Bowel Sounds, Soft, No Tenderness, No Hepatospenomegaly, No Masses Neurological: Normal Speech, Strength at 5/5 X4 Ext, Normal Tone, Sensation Intact, Reflexes 2+ Extremities: No Clubbing, No Cyanosis, No Edema, Normal Pulses, No Tenderness/ Swelling Vascular: Normal Pulses, Pulses Symmetrical Current Medications: Current Medications Sig/Daja Start time Last Medication Dose Route Stop Time Status Admin Acetaminophen 650 MG Q6P PRN 07/06 1100 AC PO Atorvastatin Calcium 20 MG 1700 07/06 1700 AC 07/07 PO 1633 Bisacodyl 10 MG Q12P PRN 07/[address] Citalopram 20 MG DAILY 07/07 0900 AC 07/08 Hydrobromide PO 0914 Docusate Sodium 100 MG DAILY NEEDED PRN 07/07 1115 AC PO Heparin Sodium 5,000 UNIT Q8 07/06 1400 AC 07/08 (Porcine) SC 0519 Insulin Aspart 0 TIDAC/HS 07/06 1200 AC 07/08 SC 1216 Insulin Detemir 18 UNITS AT BEDTIME 07/07 2100 AC 07/07 SC 2200 Levothyroxine Sodium 0.05 MG DAILY AC 07/06 1112 AC 07/08 PO 0519 Losartan Potassium 100 MG DAILY 07/07 0900 AC 07/08 PO 0915 Metoprolol Tartrate 12.5 MG BID 07/06 1234 AC 07/08 PO 0915 Omeprazole 20 MG DAILY AC 07/07 0700 AC 07/08 PO 0519 Ranolazine 500 MG BID 07/06 1215 AC 07/08 PO 0916 Senna/Docusate Sodium 1 TAB BID PRN 07/07 1115 AC PO Simethicone 80 MG Q6P PRN 07/06 1915 AC 07/06 PO 1954 Ticagrelor 90 MG BID 07/06 1229 AC 07/08 PO 0914 Last 24 Hrs of Lab/Prakash Results Last 24 Hrs of Labs/Mics: Laboratory Tests 07/08/18 0655: Anion Gap 8, Estimated GFR 37 L, BUN/Creatinine Ratio 31.4 H, CBC w Diff NO MAN DIFF REQ, RBC 3.56 L, MCV 88.5, MCH 30.1, MCHC 34.0, RDW 13.7, MPV 9.3, Gran % 56.9, Lymphocytes % 30.9, Monocytes % 9.5 H, Eosinophils % 2.2, Basophils % 0.5, Absolute Granulocytes 2.8, Absolute Lymphocytes 1.5, Absolute Monocytes 0.5, Absolute Eosinophils 0.1, Absolute Basophils 0 Assessment/Plan Assessment: 72 year old female with a past medical history significant for insulin-dependent diabetes mellitus type 2, hypertension, hyperlipidemia, coronary artery disease status post stent placement (in November 2017) on Brilinta and aspirin, 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 She was also hypothermic with a rectal temperature of 90.2. She was admitted to the ICU and then downgraded to a general med floor. Problems: Assessment and plan: previous dose of 22 units) and Apidra (sliding scale) as per endocrinology recommendations. Problem List: 1. Hypothermia 2. Hypoglycemia Pain Ratin Pain Location: None Pain Goal: Remain pain free Pain Plan: Tylenol Tomorrow's Labs & Rationales: not required Hi Aceves 07/08/18 1054: Attending MD Review Statement Attending Statement Attending MD Statement: examined this patient, discuss w/resident/PA/NATURAL REMEDY CONSULTANT, agreed w/resident/PA/NATURAL REMEDY CONSULTANT, discussed with family, reviewed EMR data (avail), discussed with nursing, discussed with case mgmt, reviewed images, amended to note Attending Assessment/Plan: 72 o/f with histroy of multiple medical prbolems in past comes with severe hypoglycemia and hypothermia required ICU stay and transferred from ICU to [facility]/ [facility]. Pateint afebrile without new complaints. She is aaox 3 oriented and wants to go home. She has CKD stage 3. Endocrinology on board. Please follow up with endocrinology for inuslin recommendations at discharge. Diabetes education given bedside. Goal will be to prevent future epsiodes of hypoglycemia due to medication effects and patient education.
[2018-07-08 08:22] LABS: ABSOLUTE BASOPHIL COUNT 0 /CUMM (0.0-0.2); ABSOLUTE EOSINOPHIL COUNT 0.1 /CUMM (0.0-0.7); ABSOLUTE GRANULOCYTE CT 2.8 /CUMM (1.4-6.5); ABSOLUTE LYMPH COUNT 1.5 /CUMM (1.2-3.4); ABSOLUTE MONOCYTE COUNT 0.5 /CUMM (0.10-0.60); BASOPHIL % 0.5 % (0.0-2.0); EOSINOPHIL % 2.2 % (0-5); GRANULOCYTE % 56.9 % (42.2-75.2); HEMATOCRIT 31.5 % (37-47); MEAN CORPUSCULAR HGB 30.1 PG (27.0-31.0); MEAN CORPUSCULAR VOLUME 88.5 FL (81.0-99.0); MEAN PLATELET VOLUME 9.3 FL (7.4-10.4); PLATELET COUNT 173 /CUMM (130-400); RBC DISTRIBUTION WIDTH 13.7 % (11.5-14.5); RED BLOOD CELL CT 3.56 /CUMM (4.20-5.40); WHITE BLOOD CELL COUNT 4.8 /CUMM (4.8-10.8)
--- NOTE | 2018-07-08 11:42 | Patient Discharge Instructions ---
Discharge Instructions General Discharge Information You were seen/treated for: Hypoglycemia(Low blood glucose levels), hypothermia Watch for these problems: Dizziness, lightheadedness, confusion, low blood sugar levels: If you have any of these please visit your nearest emergency department Special Instructions: admission to [facility] 1 week after discharge recent admission to [facility] 1 week after discharge Diet Recommended Diet: Diabetic Activity Activity Self Limited: Yes Acute Coronary Syndrome Inclusion Criteria At DC or during hospital stay patient has or had the following: ACS DIAGNOSIS No Discharge Core Measures Meds if any: Prescribed or Continued at Discharge Meds if any: NOT Prescribed or Continued at Discharge Congestive Heart Failure Inclusion Criteria At DC or during hospital stay patient has or had the following: CHF DIAGNOSIS No Discharge Core Measures Meds if any: Prescribed or Continued at Discharge Meds if any: NOT Prescribed or Continued at Discharge Cerebrovascular accident Inclusion Criteria At DC or during hospital stay patient has or had the following: CVA/TIA Diagnosis No Discharge Core Measures Meds if any: Prescribed or Continued at Discharge Meds if any: NOT Prescribed or Continued at Discharge Venous thromboembolism Inclusion Criteria VTE Diagnosis No Discharge Core Measures - Per Current guidelines, there needs to be overlap - treatment for the first 5 days of Warfarin therapy. - If discharged on Warfarin prior to 5 days of - overlap therapy, the patient will need to be - assessed for post discharge needs including - *Post discharge parental anticoagulation - *Warfarin and/or parental anticoagulation education - *Follow up date to check INR post discharge Meds if any: Prescribed or Continued at Discharge Note: Overlap Therapy is Warfarin and Anticoagulant Meds if any: NOT Prescribed or Continued at Discharge
--- NOTE | 2018-07-08 11:52 | PN- Diabetes ---
Assessment/Plan Diabetes Assessment: 72 y/o female with hx of diabetes type 2, hypothyroidism and CAD, was brought to ER for hypoglycemia with glucose level in the 40s. She was found to be hypothermic wih temperature of 90.2. After she was treated with glucose and warming blanket, she became alert and awake. Her glucose level was in the 300s and IV glucose was discontinued. She was put on consistent carbohydrates 1 diet. Her blood glucose has been reasonably controlled over the past 24 hours. Plan: Once she is discharged, she should continue to take Lantus 18 units at bedtime. She should continue to check blood glucose before each meal and before going to bed and use insulin Apidra according to the scales below Please give her our office phone #[phone] so she can make appointment with us after discharge. Inpatient Diabetes Orders Before Each Meal: < 80 mg/dl: 0 80-100 mg/dl: 5 101-120 mg/dl: 5 121-150 mg/dl: 5 151-200 mg/dl: 6 201-250 mg/dl: 7 251-300 mg/dl: 8 301-350 mg/dl: 9 351-400 mg/dl: 10 > 400 mg/dl: 11 Bedtime: < 80 mg/dl: 0 80-100 mg/dl: 0 101-120 mg/dl: 0 121-150 mg/dl: 0 151-200 mg/dl: 0 201-250 mg/dl: 1 251-300 mg/dl: 2 301-350 mg/dl: 3 351-400 mg/dl: 4 > 400 mg/dl: 5 Subjective Subjective: Her blood glucose has been between 140 to 280 over the last 24 hours. Stable after insulin dose was changed Objective Last 24 Hrs of Vital Signs/I&O Vital Signs Date Time Temp Pulse Resp B/P B/P Pulse O2 O2 Flow FiO2 Mean Ox Delivery Rate 07/08 916 74 122/68 07/08 0915 74 122/68 07/08 0915 74 12268 07/08 0534 98.1 66 18 120/70 97 Room Air 07/07 2200 79 134/60 07/07 2159 79 134/60 07/07 2133 98.2 79 20 134/60 99 Room Air 07/07 1755 97.9 80 20 132/70 97 Room Air 07/07 1600 97.9 92 18 106/60 96 Room Air Intake & Output 07/08 1600 07/08 0800 07/08 0000 Intake Total 240 Output Total Balance 240 Intake, Oral 240
[2018-07-08] MEDS ORDERED: CITALOPRAM HBR20 MG PO (12:53)
[2018-07-08] MEDS ORDERED: LIPITOR20 M2 PO (12:53)
[2018-07-08] MEDS ORDERED: COZAAR100 M1 PO (12:54)
[2018-07-08] MEDS ORDERED: SYNTHROID50 MCG PO (12:54)
[2018-07-08] MEDS ORDERED: BRILINTA90 M1 PO (12:55)
[2018-07-08] MEDS ORDERED: PRILOSEC OTC20 M1 PO (12:55)
[2018-07-08] MEDS ORDERED: RANEXA500 M1 PO (12:55)
[2018-07-08] MEDS ORDERED: METOPROLOL TART25 M1 PO (12:55)
[2018-07-08] MEDS ORDERED: LANTUS SOL100 UNIT/1 SC (12:58)
[2018-07-08 13:00] VITALS: BP 131/64
[2018-07-08] MEDS ORDERED: APIDRA SOL100 UNIT/1 SC ×2 (13:20→13:27)
[2018-07-08] MEDS ORDERED: LANTUS100 UNIT/1 SC ×2 (13:21→13:27)
--- NOTE | 2018-07-08 13:30 | Discharge Summary ---
Hospital Course Allergies: Coded Allergies: NO KNOWN ALLERGIES (07/11/11) Discharge Instructions Medications at Discharge Discharge Medications: Stop taking the following medications: Insulin Glargine,Hum.rec.anlog (Lantus Solostar) 100 UNIT/ML (3 ML) INSULN.PEN SC Every night Continue taking these medications: Atorvastatin Calcium (Lipitor) 20 MG TABLET 1 Tablet ORAL DAILY Citalopram Hydrobromide (Citalopram HBr) 20 MG TABLET 1 Tablet ORAL DAILY Levothyroxine Sodium (Synthroid) 50 MCG TABLET 1 Tablet ORAL DAILY Losartan (Cozaar) 100 MG TABLET 1 Tablet ORAL DAILY Metoprolol Tartrate (Metoprolol Tartrate) 25 MG TABLET 0.5 Tablet ORAL TWICE DAILY Omeprazole Magnesium (Prilosec Otc) 20 MG TABLET.DR 1 Tablet ORAL DAILY Ranolazine (Ranexa) 500 MG TAB.ER.12H 1 Tablet ORAL TWICE DAILY Ticagrelor (Brilinta) 90 MG TABLET 1 Tablet ORAL TWICE DAILY The following medications have been changed: Old: Insulin Glulisine (Apidra Solostar) 100 UNIT/ML INSULN.PEN Unknown Dose SC See Instructions New: Insulin Glulisine (Apidra Solostar) 100 UNIT/ML INSULN.PEN 1 Units SC See Instructions Qty = 30 Instructions: BEFORE EACH MEAL BEDTIME <80-0U 80-150-5U 151-200-6U 201-250-7U 1U 251-300-8U 2U 301-35O-9U 3U 351-400-10U 4U >400 -11U 5U Old: Insulin-Lantus (Lantus) 100 UNIT/ML VIAL 22 Units SC Every night New: Insulin-Lantus (Lantus) 100 UNIT/ML VIAL 18 Units SC Every night Qty = 30 Copies To: Sonny Persaud DO
== END 2018-07-08 14:50 | DRG 637 ==
LOC: ERH 06:57 → 2NB 07:52 → ERHI 07:52 → CRI 07:52 → ENRESERV 08:43 → ENTRNSPT 10:57 → EDTRNSPTSTS 11:20 → CRI 11:35 → CMPTRNSPT 11:56 → 2NB 07-07 17:59 → ENPENDDIS 07-08 13:32 → 2NB 07-08 14:50
PROVIDERS: Emergency Medicine; Internal Medicine Pulmonary Disease; Physical Medicine & Rehabilitation; Student in an Organized Health Care Education/Training Program
DX: E11.649 Type 2 diabetes mellitus with hypoglycemia without coma (principal); G93.41 Metabolic encephalopathy; E03.9 Hypothyroidism, unspecified; Z98.61 Coronary angioplasty status; E11.22 Type 2 diabetes mellitus with diabetic chronic kidney disease; I12.9 Hypertensive chronic kidney disease with stage 1 through stage 4 chronic kidney disease, or unspecified chronic kidney disease; T38.3X5A Adverse effect of insulin and oral hypoglycemic [antidiabetic] drugs, initial encounter; N17.9 Acute kidney failure, unspecified; R68.0 Hypothermia, not associated with low environmental temperature; E78.5 Hyperlipidemia, unspecified; F32.9 Major depressive disorder, single episode, unspecified; I25.119 Atherosclerotic heart disease of native coronary artery with unspecified angina pectoris; R91.8 Other nonspecific abnormal finding of lung field; N18.3 Chronic kidney disease, stage 3 (moderate)
CPT/HCPCS: 2NBSP; CCU; 36415; 36592; 74176; 80307; 81001; 82436; 87040; 87086; 93005; 93010; 96361; 96374; 99291; J1644; J3490; J7060; Q2036